=== PATIENT | male | born 1975 | race Caucasian/White ===

== ENCOUNTER 2019-06-21 17:10 | Emergency (ER) | payer OTHER, BC ==
[~2019-06-21] VITALS: Ht 175.3 cm; Wt 87.3 kg
[2019-06-21 17:19] VITALS: BP 145/92; Ht 175.3 cm; Wt 87.3 kg
[2019-06-21] MEDS ORDERED: TORADOL10 MG PO (18:50)
[2019-06-21] MEDS ORDERED: CLINDAMYCIN HC300 MG PO (18:50)
== END 2019-06-21 19:00 | disposition home or self-care (01) ==
LOC: D.ER 17:10
DX: S61.213A Laceration without foreign body of left middle finger without damage to nail, initial encounter (principal); W27.8XXA Contact with other nonpowered hand tool, initial encounter